=== PATIENT | female | born 1985 | race Caucasian/White ===

== ENCOUNTER → 2021-04-06 | Outpatient (CLI) | payer OTHER ==
[~2021-04-06] MED LIST: CELEXA 20MG20 MG/TAB PO; HCTZ12.5TAB PO; MULTIPLE VITAMI1 CAP PO; NEXIUM 20MG20 MG PO; TOPROL XL 50MG50 MG; ULTRAM 50MG TAB50 MG PO
== END ==
LOC: COL.LAB 10:34
DX: J30.1 Allergic rhinitis due to pollen (principal)